=== PATIENT | female | born 2000 ===

== ENCOUNTER 2021-08-03 22:31 | Emergency (ER) | payer BC ==
--- NOTE | 2021-08-03 23:21 | EDM.PDOC ---
ED HPI GENERAL MEDICAL PROBLEM - General Chief Complaint: CTRS Problem Stated Complaint: CUTS IN VAGINA Time Seen by Provider: 08/03/21 23:21 - History of Present Illness INITIAL COMMENTS - FREE TEXT/NARRATIVE: Patient arrived ED via private vehicle She endorses occurrence of active vaginal bleeding after work this evening She presumed that it was due to a wound or laceration in the vaginal area She came to ED due to concern about the extent of bleeding noted States she had a similar occurrence about 2 months ago Symptoms at that time resolved within a few hours When she was subsequently seen by provider, it was surmised that the wound from which bleeding had occurred had adequately healed She was prescribed vaginal medication for use at that time States that provider at that time did an external inspection, but no speculum or manual vaginal examination was performed Patient further states she has never had a pelvic examination or Pap smear She was treated with Depo-Provera approximately 5 years while living in [place] She moved here about 1 year ago She received 2 further doses of Depo-Provera, last one approximately 10 months ago Treatment was discontinued due to cost - Related Data Allergies Allergy/AdvReac Type Severity Reaction Status Date / Time No Known Allergies Allergy Verified 08/03/21 22:53 Home Meds: Home Meds . [No Known Home Meds] 08/03/21 [History] Past Medical History - Past Health History Medical/Surgical History: Denies Medical/Surgical History Social & Family History - Family History Family Medical History: No Pertinent Family History - Tobacco Use Years of Tobacco use: 1 Packs/Tins Daily: 1 Second Hand Smoke Exposure: No - Caffeine Use Caffeine Use: Reports: Coffee - Recreational Drug Use Recreational Drug Use: No ED ROS GENERAL - Review of Systems Review Of Systems: See Below Free Text/Narrative/Comment: Constitutional - no fever Cardiovascular - no chest pain Respiratory - no shortness of breath; no cough Gastrointestinal - no abdominal pain; no nausea; no vomiting; no diarrhea Genitourinary - no dysuria; vaginal bleeding; no vaginal discharge; no vaginal pain Musculoskeletal - no neck pain; no back pain; no extremity injury Neurological - no headache; no speech disturbance; no weakness ED EXAM, GENERAL - Physical Exam Exam: See Below Free Text/Narrative:: Constitutional - awake; alert; no acute distress Head - no facial swelling or weakness Eyes - extra ocular motion intact; conjunctiva normal ENT - no nasal deformity; no epistaxis; normal phonation Neck - no swelling Respiratory - normal respiratory effort GI/Abdomen - soft; no tenderness; no mass Genitourinary - no labial or perivaginal lesions or wounds; dark red/brown blood present in vaginal vault; multiple cervical warts visible with somewhat lesser appearance on vaginal obregon; no adnexal or uterine enlargement or tenderness Musculoskeletal - grossly normal strength and motion; no swelling or deformity Skin - warm; dry Neurologic - normal speech; no weakness; gait intact Psychiatric - normal mood and affect; memory and attention normal Course - Vital Signs Text/Narrative:: . Considered etiologies included: Vaginitis, vaginal laceration, vaginal bleeding, cervical lesions, cervical warts, HPV Symptoms and examination were discussed Investigations were initiated Patient was advised that vaginal bleeding is frequently due to hormone dysfunction An association between the bleeding and appearance of cervix was uncertain Short-term gynecology follow-up in regards to these issues was advised Patient was felt to be stable for outpatient follow-up Return precautions were provided Last Recorded V/S: Last Vital Signs Temp 36.6 C 08/03/21 22:52 Pulse 83 08/03/21 22:52 Resp 16 08/03/21 22:52 BP 121/79 08/03/21 22:52 Pulse Ox 99 08/03/21 22:52 - Orders/Labs/Meds Labs: Laboratory Tests 08/03/21 08/03/21 Range/Units 23:40 23:45 Urine HCG, Qual Negative (NEGATIVE) C trachomatis DNA (PCR) Not detected N gonorrhoeae DNA (PCR) Not detected Wet prep was negative Departure - Departure Time of Disposition: 00:31 Disposition: Home, Self-Care 01 Clinical Impression: Vaginal bleeding, Lesion of cervix - Discharge Information *PRESCRIPTION DRUG MONITORING PROGRAM REVIEWED*: Not Applicable *COPY OF PRESCRIPTION DRUG MONITORING REPORT IN PATIENT CHRIS: Not Applicable Instructions: Abnormal Uterine Bleeding Referrals: Paul Lancaster MD [Primary Care Provider] - Forms: ED Department Discharge Additional Instructions: Return if condition worsens May resume general activity and regular diet as tolerated Continue usual medications Follow-up with primary care and/or gynecology provider is recommended within 5-7 days Sepsis Event Note (ED) - Evaluation Sepsis Screening Result: No Definite Risk - Focused Exam Vital Signs: Vital Signs Temp Pulse Resp BP Pulse Ox 08/03/21 22:52 36.6 C 83 16 121/79 99
[2021-08-04 01:33] LABS: C. TRACHOMATIS BY PCR NOT DETECTED; N. GONORRHOEAE BY PCR NOT DETECTED
== END 2021-08-04 00:50 | disposition home or self-care (01) ==
LOC: EDBD 22:31 → JD.ED 22:31
DX: N93.9 Abnormal uterine and vaginal bleeding, unspecified (principal); L98.8 Other specified disorders of the skin and subcutaneous tissue
CPT/HCPCS: 81025; 87210; 87491; 87591; 87808; 99284

== ENCOUNTER 2022-08-07 14:44 | Emergency (ER) | payer BC | END 2022-08-07 16:30 | disposition home or self-care (01) | LOC: JD.ED 14:44 | DX: T58.8X1A Toxic effect of carbon monoxide from other source, accidental (unintentional), initial encounter (principal) | CPT/HCPCS: 82375; 99283 ==

== ENCOUNTER 2023-02-17 22:32 | Emergency (ER) | payer BC ==
[2023-02-17 23:37] LABS: CORONAVIRUS COVID-19 NAA NEGATIVE (NEGATIVE)
[2023-02-18] MEDS ORDERED: predniSONE 20 MG Tab PO ONE (01:04)
[2023-02-18] MEDS ORDERED: Albuterol 0.083% 2.5 MG/3 ML Neb Soln NEB ONE (01:04)
== END 2023-02-18 02:14 | disposition home or self-care (01) ==
LOC: JD.ED 22:32
DX: J45.901 Unspecified asthma with (acute) exacerbation (principal); Z20.822 Contact with and (suspected) exposure to COVID-19
CPT/HCPCS: 0241U; 94640; 99285; J7512; 99283; J7620-GY